=== PATIENT | female | born 1990 | race Caucasian/White ===

== ENCOUNTER 2017-04-07 14:09 | Emergency (ER) | payer OTHER ==
[2017-04-07 17:22] VITALS: BP 114/76
[2017-04-07] MEDS ORDERED: predniSONE TAB* 20 MG PO ONE (17:31)
[2017-04-07] MEDS ORDERED: Albuterol HFA INHALER* 8 gm MDI INH ONE (17:32)
--- NOTE | 2017-04-07 17:39 | UC ---
Respiratory Complaint HPI - HPI Summary HPI Summary: patient has had severe cough for the past 5 days. has been taking mucinex for the past few days - History of Current Complaint Chief Complaint: UCRespiratory Stated Complaint: SINUSES,EARS Time Seen by Provider: 04/07/17 17:03 Hx Obtained From: Patient Hx Last Menstrual Period: 03/23/17 ?: No Onset/Duration: Sudden Onset, Lasting Days Timing: Constant Severity Currently: Moderate Character: Cough: Productive Aggravating Factors: Exertion, Deep Breaths, Recumbent Position Alleviating Factors: Nothing Associated Signs And Symptoms: Positive: Wheezing, URI, Nasal Congestion, Sinus Discomfort - Allergies/Home Medications Allergies/Adverse Reactions: Allergies Allergy/AdvReac Type Severity Reaction Status Date / Time Methylphenidate Allergy Intermediate Hives Verified 04/07/17 17:22 [From Plastyc] Home Medications: Home Medications Benzonatate CAP* [Tessalon 100 MG CAP*] 100 mg PO TID 04/07/17 [History Confirmed 04/07/17] PMH/Surg Hx/FS Hx/Imm Hx Previously Healthy: Yes - Surgical History Surgical History: None - Family History Known Family History: Positive: Hypertension - Social History Alcohol Use: Occasionally Substance Use Type: None Smoking Status (MU): Former Smoker Review of Systems Constitutional: Negative Skin: Negative Eyes: Negative ENT: Negative, Nasal Discharge Respiratory: Shortness Of Breath, Cough Cardiovascular: Negative Gastrointestinal: Negative Genitourinary: Negative Motor: Negative Neurovascular: Negative Musculoskeletal: Negative Neurological: Headache Is Patient Immunocompromised?: No All Other Systems Reviewed And Are Negative: Yes Physical Exam Triage Information Reviewed: Yes Appearance: Well-Nourished, Ill-Appearing, Pain Distress Vital Signs: Initial Vital Signs Temp 98.7 F 04/07/17 17:18 Pulse 85 04/07/17 17:18 Resp 16 04/07/17 17:18 BP 114/76 04/07/17 17:18 Pulse Ox 99 04/07/17 17:18 Vital Signs Reviewed: Yes Eye Exam: Normal ENT Exam: Normal Dental Exam: Normal Neck exam: Normal Neck: Positive: Supple, Nontender, No Lymphadenopathy Respiratory: Positive: Chest non-tender, Normal breath sounds, Wheezing, Inspiration Cardiovascular Exam: Normal Cardiovascular: Positive: RRR, No Murmur, Pulses Normal Abdominal Exam: Normal Abdomen Description: Positive: Nontender, No Organomegaly, Soft Bowel Sounds: Positive: Present Musculoskeletal Exam: Normal Neurological Exam: Normal Psychological Exam: Normal Skin Exam: Normal UC Diagnostic Evaluation - Laboratory O2 Sat by Pulse Oximetry: 99 Respiratory Course/Dx - Course Course Of Treatment: hx obtained, exam preformed, medications reviewed, treated for cough - Differential Dx/Diagnosis Differential Diagnosis/HQI/PQRI: Bronchitis, Laryngitis, Sinusitis Provider Diagnoses: cough. bronchospasm Discharge - Discharge Plan Condition: Stable Disposition: HOME Prescriptions: predniSONE TAB* [Deltasone TAB*] 40 mg PO DAILY #14 tab Patient Education Materials: Bronchospasm (ED) Referrals: No Primary Care Phys,NOPCP [Primary Care Provider] - Additional Instructions: 1. take the medication as prescribed. 2. Increase fluid intake and get plenty of rest.
== END 2017-04-07 17:51 | disposition home or self-care (01) ==
LOC: UCCORT 14:09
DX: J45.990 Exercise induced bronchospasm (principal); R05 Cough; Z87.891 Personal history of nicotine dependence
CPT/HCPCS: 99212; A9270-GY; G0463; J7512

== ENCOUNTER 2017-04-22 15:24 | Emergency (ER) | payer OTHER ==
[2017-04-22 15:55] VITALS: BP 142/73
--- NOTE | 2017-04-22 16:31 | UC ---
Skin Complaint HPI - HPI Summary HPI Summary: HISTORY OF MRSA. TWO DAY HISTORY OF SMALL RED TENDER LUMPS ON LEFT THIGH. CONCERN FOR DEVELOPING MRSA. - History of Current Complaint Hx Obtained From: Patient Hx Last Menstrual Period: 03/24/17 Onset/Duration: Gradual Onset, Lasting Days, Still Present Skin Exposure Onset/Duration: Days Ago Onset Severity: Mild Current Severity: Mild Character: Swelling, Redness, Raised, Painful Aggravating Factor(s): Touch Alleviating Factor(s): Nothing Associated Signs & Symptoms: Positive: Rash, Tenderness, Red Streaks. Negative : Fever, Chills, Drainage Related History: Possible Reaction to: Environmental Exposure <Boone Claire - Last Filed: 04/22/17 16:26> <Rin Cisneros - Last Filed: 04/22/17 17:30> - History of Current Complaint Chief Complaint: UCSkin Time Seen by Provider: 04/22/17 16:17 Stated Complaint: LEFT LEG COMPLAINT - Allergy/Home Medications Allergies/Adverse Reactions: Allergies Allergy/AdvReac Type Severity Reaction Status Date / Time Methylphenidate Allergy Intermediate Hives Verified 04/22/17 15:55 [From Concerta] Home Medications: Home Medications ALPRAZolam TAB* [Xanax TAB*] 0.25 mg PO TID PRN 04/22/17 [History Confirmed 03/29] Cholecalciferol TAB* [Vitamin D TAB*] 1,000 unit PO DAILY 04/22/17 [History Confirmed 04/22/17] Review of Systems Constitutional: Negative Skin: Other - RED FIRM AREAS ON LEFT THIGH Eyes: Negative ENT: Negative Respiratory: Negative Cardiovascular: Negative Gastrointestinal: Negative Genitourinary: Negative Motor: Negative Neurovascular: Negative Musculoskeletal: Negative Neurological: Negative Psychological: Negative Is Patient Immunocompromised?: No All Other Systems Reviewed And Are Negative: Yes <Boone Claire - Last Filed: 04/22/17 16:26> PMH/Surg Hx/FS Hx/Imm Hx Previously Healthy: Yes - Surgical History Surgical History: None - Family History Known Family History: Positive: Hypertension - Social History Occupation: Employed Full-time Lives: With Family Alcohol Use: Occasionally Substance Use Type: None Smoking Status (MU): Former Smoker <Boone Claire - Last Filed: 04/22/17 16:26> Physical Exam Triage Information Reviewed: Yes Appearance: Well-Appearing, No Pain Distress, Well-Nourished Vital Signs: Initial Vital Signs Temp 99.0 F 04/22/17 15:50 Pulse 86 04/22/17 15:50 Resp 16 04/22/17 15:50 BP 142/73 04/22/17 15:50 Pulse Ox 98 04/22/17 15:50 Vital Signs Reviewed: Yes Eye Exam: Normal ENT Exam: Normal ENT: Positive: Normal ENT inspection, Hearing grossly normal, Pharynx normal Dental Exam: Normal Neck exam: Normal Neck: Positive: Supple, Nontender, No Lymphadenopathy Respiratory Exam: Normal Respiratory: Positive: Chest non-tender, Lungs clear, Normal breath sounds, No respiratory distress Cardiovascular Exam: Normal Cardiovascular: Positive: RRR, No Murmur, Pulses Normal Abdominal Exam: Normal Musculoskeletal Exam: Normal Musculoskeletal: Positive: Strength Intact, ROM Intact Neurological Exam: Normal Psychological Exam: Normal Skin: Positive: Other - 3 X (0.5CM X 0.5CM) INDURATED ERYTHEMATOUS LESIONS ON LEFT MEDIAL THIGH <Boone Claire - Last Filed: 04/22/17 16:26> Vital Signs: Initial Vital Signs Temp 99.0 F 04/22/17 15:50 Pulse 86 04/22/17 15:50 Resp 16 04/22/17 15:50 BP 142/73 04/22/17 15:50 Pulse Ox 98 04/22/17 15:50 <Rin Cisneros - Last Filed: 04/22/17 17:30> Course/Dx - Differential Diagnoses - Skin Complaint Differential Diagnoses: Abscess, Cellulitis, MRSA - Diagnoses Provider Diagnoses: LEFT MEDIAL THIGH CELLULITIS <Boone Claire - Last Filed: 04/22/17 16:26> Discharge <Boone Claire - Last Filed: 04/22/17 16:26> <Rin Cisneros - Last Filed: 04/22/17 17:30> - Discharge Plan Condition: Stable Disposition: HOME Prescriptions: Sulfamethox/Trimethoprim DS* [Bactrim DS 800/160 TAB*] 1 tab PO BID #20 tab Patient Education Materials: Cellulitis (ED), Abscess (ED) Referrals: Vivienne Carroll MD [Primary Care Provider] - Attestation Statement User Type: Provider - I was available for consult. This patient was seen by the KIMO. The patient was not presented to, seen by, or examined by me. -Wood <Rin Cisneros - Last Filed: 04/22/17 17:30>
== END 2017-04-22 16:29 | disposition home or self-care (01) ==
LOC: UCCORT 15:24
DX: L02.416 Cutaneous abscess of left lower limb (principal)
CPT/HCPCS: 99212; G0463

== ENCOUNTER 2018-02-06 08:57 | Emergency (ER) | payer OTHER ==
[2018-02-06 09:42] VITALS: BP 127/72
[2018-02-06] MEDS: Ibuprofen TAB* 600 MG PO ONE (10:35)
--- NOTE | 2018-02-06 10:39 | UC ---
Back Pain HPI - HPI Summary HPI Summary: 27 year old female with back pain. Fell at work yesterday AM . Tripped on a rug. Did not hit head. Fell to the side she thinks. No pain down the leg or in to the groin. No red falgs like leg giving out, no incontinence , no foot drop. No urinary concerns - History of Current Complaint Chief Complaint: UCBackPain Stated Complaint: WC - S/P FALL BACK PAIN Time Seen by Provider: 02/06/18 10:04 Hx Obtained From: Patient Hx Last Menstrual Period: 3 weeks Onset/Duration: Sudden Onset Timing: Intermittent Severity Initially: Moderate Severity Currently: Moderate Pain Intensity: 8 Aggravating Factor(s): Movement, Lifting, Bending Alleviating Factor(s): Rest, Position Associated Signs And Symptoms: Positive: Negative Related History: Occupational Injury - Allergies/Home Medications Allergies/Adverse Reactions: Allergies Allergy/AdvReac Type Severity Reaction Status Date / Time methylphenidate Allergy Intermediate Hives Verified 02/06/18 09:33 [From Concerta] bupropion [From Wellbutrin] Allergy Hallucinati Verified 02/06/18 09:43 ons Home Medications: Home Medications Acetaminophen [Acetaminophen Extra Strength] 500 mg PO Q4H PRN 02/06/18 [ History Confirmed 02/06/18] Escitalopram Oxalate [Lexapro 20 mg] 20 mg PO DAILY 02/06/18 [History Confirmed 02/06/18] Ibuprofen TAB* [Motrin TAB* 600 MG] 600 mg PO Q6H PRN 02/06/18 [History Confirmed 02/06/18] PMH/Surg Hx/FS Hx/Imm Hx Previously Healthy: Yes Psychological History: Anxiety, Depression - Surgical History Surgical History: None - Family History Known Family History: Positive: Hypertension - Social History Occupation: Employed Full-time Alcohol Use: Occasionally Substance Use Type: None Smoking Status (MU): Former Smoker Review of Systems Motor: Decreased ROM Musculoskeletal: Arthralgia, Decreased ROM Is Patient Immunocompromised?: No All Other Systems Reviewed And Are Negative: Yes Physical Exam Triage Information Reviewed: Yes Appearance: Well-Appearing, Pain Distress - moderate Vital Signs: Initial Vital Signs Temp 97.7 F 02/06/18 09:36 Pulse 73 02/06/18 09:36 Resp 20 02/06/18 09:36 BP 127/72 02/06/18 09:36 Pulse Ox 99 02/06/18 09:36 Vital Signs Reviewed: Yes Eye Exam: Normal ENT: Positive: Hearing grossly normal Neck: Positive: 1 Respiratory: Positive: No respiratory distress Cardiovascular: Positive: Pulses Normal, Brisk Capillary Refill Musculoskeletal Exam: Normal Musculoskeletal: Positive: Strength Intact, No Edema, ROM Limited @, Other: - lumbar spine tenderness L3-5 with paraspinal tenderness. no significant PSIS tenderness. no tenderness near piriformis. neg SLR. Heel to toe exam normal. stregnth 5/5. gait antalgic normal patellar DTR. No skin changes. no step offs Neurological Exam: Normal Neurological: Positive: Alert Psychological Exam: Normal Psychological: Positive: Normal Response To Family Skin Exam: Normal Diagnostics - Laboratory ABG Interpretation: neg U preg Diagnostic Studies Completed/Ordered: IMPRESSION: #. Straightening relative to normal lumbar lordosis without additional radiographic. abnormality. Back Pain Course/Dx - Course Course Of Treatment: U preg neg. Xray shows no acute concerns. contusion vs disc concerns. advise RICE / analgesics and f/u with PCP / Ortho prn. RTO if any concerns. Go to eD if needed - Differential Dx/Diagnosis Differential Diagnosis/HQI/PQRI: Fracture, Herniated Disc, Strain, Sprain Provider Diagnoses: Lumbar strain s/p fall Discharge - Sign-Out/Discharge Documenting (check all that apply): Patient Departure All imaging exams completed and their final reports reviewed: Yes - Discharge Plan Condition: Good Disposition: HOME Prescriptions: Ibuprofen TAB* [Motrin TAB* 600 MG] 600 mg PO Q8H PRN #30 tab PRN Reason: Pain tiZANidine TAB* [Zanaflex TAB*] 2 mg PO BEDTIME PRN #7 tab PRN Reason: Spasms Patient Education Materials: Back Pain (ED) Forms: *Work Release Referrals: Vivienne Carroll MD [Primary Care Provider] - 4 Days Moses Abarca MD [Medical Doctor] - 4 Days (Orthopedic referral if needed ) - Billing Disposition and Condition Condition: GOOD Disposition: Home
--- NOTE | 2018-02-06 11:00 | RAD ---
Indication: Low back pain post fall yesterday. Comparison: No relevant prior exams available on the [facility] PACS for comparison. Technique: AP, lateral, and oblique views lumbar sacral spine. Report: Straightening relative to normal lumbar lordosis without spondylolisthesis at any level. Negative for fracture or spondylolysis. Preserved disc spaces. Unremarkable paravertebral soft tissue contours. IMPRESSION: #. Straightening relative to normal lumbar lordosis without additional radiographic abnormality.
== END 2018-02-06 11:18 | disposition home or self-care (01) ==
LOC: UCCORT 08:57
DX: S39.012A Strain of muscle, fascia and tendon of lower back, initial encounter (principal); W01.0XXA Fall on same level from slipping, tripping and stumbling without subsequent striking against object, initial encounter; Y93.9 Activity, unspecified; Y92.9 Unspecified place or not applicable; Y99.0 Civilian activity done for income or pay; Z88.8 Allergy status to other drugs, medicaments and biological substances; F41.8 Other specified anxiety disorders; Z87.891 Personal history of nicotine dependence
CPT/HCPCS: 72110; 84702; 99212; A9270-GY; G0463

== ENCOUNTER → 2018-04-14 06:18 | Day surgery (SDC) | payer OTHER ==
--- NOTE | 2018-04-09 22:12 | HP ---
PREOPERATIVE HISTORY AND PHYSICAL: DATE OF ADMISSION/SURGERY: 04/14/[address] [facility] DATE OF OFFICE VISIT: 04/08/18 ATTENDING SURGEON: Dr. Erna Donaldson.* (DICTATED BY MAMI PETTY) PROCEDURE: Right knee arthroscopy, anterior cruciate ligament reconstruction with [id number] autograft, and partial meniscectomy. CHIEF COMPLAINT: Right knee. HISTORY OF PRESENT ILLNESS: Lani is a 28-year-old female, who presents to the clinic for right knee pain and instability due to an ACL tear and a meniscus tear. She has failed conservative measures and therefore agreed to undergo a right knee arthroscopy, anterior cruciate ligament reconstruction with [id number] autograft, and partial meniscectomy with Dr. Donaldson on 07/28. The patient also states that she recently had strep, but has finished her course of antibiotics and is doing better and is asymptomatic. PAST MEDICAL HISTORY: Depression, anxiety, peptic ulcer disease, and seasonal allergies. PAST SURGICAL HISTORY: Endoscopy. The patient denies prior complications with anesthesia. MEDICATIONS: 1. Alprazolam 0.5 mg 1 by mouth daily. 2. Omeprazole 20 mg 1 by mouth daily. ALLERGIES: CONCERTA and WELLBUTRIN. FAMILY HISTORY: Positive for degenerative disk disease. SOCIAL HISTORY: She lives with her boyfriend. She reports occasional alcohol consumption. She is a former smoker, quit 9 years ago. She is right-hand dominant. REVIEW OF SYSTEMS: A 14-point review of systems was reviewed with the patient. Positive for current complaint, otherwise negative. Denies fever, chills, chest pain, shortness of breath, history of DVT or PE, history of bleeding disorder. PHYSICAL EXAMINATION GENERAL: A 28-year-old well-developed, well-nourished female, in no acute distress. Alert and oriented x3. Appropriate mood and affect. VITAL SIGNS: Height 65, weight 239, pulse 72, blood pressure 118/62, respiratory rate 16, temperature 99.3, BMI 39.8. HEENT: Normocephalic, atraumatic. PERRLA. Throat clear. NECK: Supple. PULMONARY: Lungs are clear to auscultation bilaterally. No wheezing, rhonchi, or rales. CARDIO: Regular rate and rhythm. S1, S2. No murmurs, gallops, or rubs. No edema. ABDOMEN: Positive bowel sounds. Soft, nontender. NEURO: Alert and oriented x3. Cranial nerves grossly intact. Sensation intact to light touch. MUSCULOSKELETAL: Right lower extremity: Visible quadriceps atrophy. Range of motion 0 to 130. 2B to 3B Ashley. Negative posterior drawer. Stable to varus and valgus stress. Tenderness over the medial joint line. Positive Amarilis. Calf soft, nontender. +5/5 strength to ankle dorsiflexion and plantarflexion. +2 DP pulse. Sensation intact to light touch distally. Mild knee effusion. DIAGNOSTIC STUDIES: MRI of the right knee revealed ACL insufficiency and a lipoma as well as a meniscus tear. IMPRESSION: Right knee anterior cruciate ligament tear and meniscus tear. PLAN: The patient is scheduled to undergo a right knee arthroscopy, anterior cruciate ligament reconstruction with [id number] autograft, and partial meniscectomy with Dr. Donaldson on 04/14/18. She will follow up 8 days postop for followup and suture removal. She will start physical therapy 7 to 10 days postoperatively. Percocet will be used for postop pain management and Keflex for antibiotic prophylaxis. MAMI PETTY [id number]/[facility] #: [id number] MTDD
[~2018-04-14 06:18] MED LIST: Acetaminophen IV 1GM/100ML * 1,000 MG/100 ML VIAL IVPB ONE; Buffered Lidocaine 0.9% SYRIN* 5 ML/SYR SYRINGE INTRADERM ONE; Bupivacaine 0.25% SDV PF* 10 ML VIAL INJ ONE; Dexamethasone IV* 4 MG/ML 1 ML (4 MG) ONE; DiMENhydriNATE IV* 50 MG/ML VIAL IV PUSH PRN; Lidocaine 1% MPF wEPI 200,000* 30 ML SDV ONE; Lidocaine 2% EPI 1:200000 MPF*10-20 ML VIAL ONE; Lidocaine 2% PF * 5 ML VIAL ONE; Midazolam* 1 MG/ML 2 ML VIAL (2 MG) ONE; Naloxone* 0.4 MG/ML 1 ML VIAL IV PRN; Ondansetron INJ* 2 MG/ML VIAL ONE; Propofol* 10 MG/ML 20 ML BTL ONE; Sodium Citrate/Citric Acid* 15 ML UDC ONE; Sodium Citrate/Citric Acid* 15 ML UDC PO ONE; ceFAZolin 2 GM PREMIX in ORs 2 GM/50 ML BAG IVPB ONE; fentaNYL* 50 MCG/ML 2 ML VIAL (100 MCG VIAL) IV PRN; fentaNYL* 50 MCG/ML 2 ML VIAL (100 MCG VIAL) ONE; oxyCODONE/Acetamin 5/325 MG* TAB ONE
[2018-04-14 10:25] VITALS: BP 107/68
--- NOTE | 2018-04-15 04:25 | OP ---
CC: PCP, Vivienne Carroll MD * DATE OF OPERATION: 04/14/18 - [facility] DATE OF : 89 SURGEON: Erna Donaldson MD AUTOMATED TELLER MANAGER: MAMI Cortez. Roll Tender was needed for the entirety of the case to help with positioning, retraction, and was utilized throughout all portions of the case. ANESTHESIOLOGIST: Dr. Stokes. ANESTHESIA: General. PRE-OP DIAGNOSIS: Right knee grade 3 anterior cruciate ligament rupture with instability. POST-OP DIAGNOSES: Right knee grade 3 anterior cruciate ligament rupture with lateral meniscal tearing as well as mild chondrosis of the medial femoral condyle and patella. OPERATIVE PROCEDURE: 1. Right knee arthroscopy with ACL reconstruction using BTB autograft. 2. Partial lateral meniscectomy. 3. Chondroplasty of the patella and medial femoral condyle. INDICATIONS: Lani Stratton is a 28-year-old female who injured her knee initially in 2016. She had persistent instability. She was unable to take care of this. She is having difficulty with participating in activities with her children. She is interested in proceeding with surgical treatment. Risks, and benefits were discussed at length including, but not limited to, bleeding, infection, damage to nerves, vessels, surrounding structures, the wound nonhealing, persistent pain, need for surgery, scarring, stiffness, incomplete relief of symptoms, risk of anesthesia, risk of bleeding, risk of DVT, risk of anesthesia. COMPLICATIONS: None. ESTIMATED BLOOD LOSS: Minimal. TOURNIQUET TIME: 18 minutes IMPLANTS USED: One 7 x 20 SoftSilk and one 9 x 25 SoftSilk screw by [employer]. DESCRIPTION OF PROCEDURE: The patient was greeted in the preoperative area by the attending surgeon. The correct extremity was marked and consent was confirmed. The patient was brought back to the operative suite where she was placed in supine position on operating room table, then underwent general anesthesia after which she was appropriately positioned on the bed. An unsterile tourniquet was placed high on the proximal thigh. The lateral post was positioned. The right leg was prepped and draped in the usual sterile fashion beginning with chlorhexidine soap, scrub, and alcohol wipe, and a final prep with ChloraPrep. After appropriate surgical pause indicating side, site, procedure, and administration of antibiotics, the knee was intra-articularly injected with 1% lidocaine with epi. The Esmarch was used to exsanguinate the limb and the tourniquet inflated to 250 mmHg. A #15 blade was used to make an incision in line with the patellar tendon, soft tissue carefully dissected to expose the paratenon and kept as protected layer for closure. The tendon was exposed at the center 10 mm and then harvested with a fresh #10 blade. Bone blocks were then harvested for a 9 x 23 mm femoral bone block and a 10 x 32 mm tibial bone block. The graft was then harvested using oscillating saw and osteotomes and prepared on the back table by the podiatry assistant. The tourniquet was deflated, the tendon was then reapproximated with 0-Vicryl in interrupted fashion. At this point, attention directed to arthroscopy. The lateral port was made through the capsule. The scope was brought to the joint. The joint was exposed. There was abundant synovitis. The anteromedial portal was then made using an 18-gauge needle for localization. The shaver was used to debride this back. The ACL had obviously scarred to the PCL. There was a very little remnant attached to the ACL footprint. The shaver was used to debride back the fat pad. The lateral wall was then prepared using biters and ness. The ACL stump was debrided off the PCL as well as. The tibial portion was prepared in usual fashion with ness and biters and electrocautery device. Diagnostic arthroscopy was then done. The knee was placed in full extension and the patella had some mild fraying about the medial facet, which had grade 2 changes. Remainder had grade 0 to 1 changes. Shaver was used to debride back into a small chondroplasty. The trochlea was without any wear or grade 0 changes. Medial and lateral gutters were intact. Medial meniscus was intact. There was a small area along the medial femoral condyle and there was about a 5 x 5 mm that had grade 2 changes. The lateral compartment was examined. There was obvious tearing and a previously healed tear of the lateral meniscus. There was fraying at the root with an unstable flap. This was debrided back using shaver, as well as the body of the meniscus. There was fissuring at the lateral plateau with grade 1 changes in fissuring and grade 0 to 1 changes at the lateral femoral condyle. The knee was then placed in 90 degrees and then the tunnel preparation began. The tip-to-tip guide was placed and was set to about 50 degrees. The guidewire was then placed in the center of the footprint, this was then overdrilled with a size 10 mm full-bore reamer. Bone graft was kept, the excess bone was then saved for later bone grafting. The tunnel was then cleaned of any loose debris. A tear was placed to prevent fluid egress. The starting awl was then used to isabel the provisional place of the ACL footprint. This was checked by changing the scope to the medial portal. This was used as a reference point for the final tunnel placement. The [employer] straight guide was then placed in the center of the footprint then the Beath pin was then drilled through the lateral wall, and once the appropriate position was determined, a 9 low-profile reamer was then used to drill to a depth about 27 mm. The tunnel was found to have a good back wall and found to be appropriately positioned and excess bone and debris was removed. The tunnel was then notched using manager of international. A #2 Ethibond suture was then passed to island of the Beath pin and passed through the lateral skin and then anterograde through the tibial tunnel. At this point, the graft was brought from the back table that had been previously wrapped in saline sterile gauze and passed under arthroscopic and direct visualization to be well seated in the tunnel, this was then secured with a size 7 x 20 mm SoftSilk screw. The knee images were obtained and the knee was then cycled for approximately 20 times to remove any creep from the graft to make sure that graft did not move. The knee was then placed in 90 degrees again and scope brought into the joint and the grasper was found to be appropriately placed. Attention was then directed to the tibial tunnel. With the knee in approximately 30 degrees of flexion and tension on the tibial bone block. With tension on tibial sutures and posterior drawer with the knee in about 20 30 degrees of flexion, a size 9 x 25 mm Beath pin was then secured. Once this was secured, the knee was taken through range of motion. Ashley was assessed and found to be stable. The scope was brought back into the joint with knee at 90 degrees and the graft was found to be appropriately positioned. Final images were obtained. The wounds were then copiously irrigated with sterile saline. Any excess bone block was removed and placed bone graft. The patella defect was then bone grafted and then oversewn with 0-Vicryl. The remainder of the bone graft was placed in the tibial defect. The paratenon was closed in 2-0 Vicryl in running fashion. The skin was closed in layers with 2- 0 Vicryl. After copious irrigation, the skin was closed in layers with 2-0 Vicryl and 3-0 Monocryl. Sterile dressings were applied. The knee was intra- articularly and superficially injected with 0.2% Ropivacaine plain. Sterile dressings were applied. The Cryo/Cuff as well as hinged knee braces were applied. She was awoken from anesthesia and transferred to PACU in stable condition. POSTOPERATIVE PLAN: She will be weightbearing as tolerated, begin therapy this week. She will be discharged on pain medication and antibiotics. I will see the patient back in 6 to 8 days. [id number]/[facility] #: [id number] MTDD
== END | disposition home or self-care (01) ==
LOC: OREAST 06:18
PROVIDERS: ATTEND Orthopaedic Surgery
DX: S83.511A Sprain of anterior cruciate ligament of right knee, initial encounter (principal); S83.281A Other tear of lateral meniscus, current injury, right knee, initial encounter; X58.XXXA Exposure to other specified factors, initial encounter; Y92.9 Unspecified place or not applicable; Z87.891 Personal history of nicotine dependence; F41.8 Other specified anxiety disorders
CPT/HCPCS: 81025; 88304; A9270-GY; C1713; J0690; J1100; J2001; J2250; J2405; J2704; J3010; J3490